=== PATIENT | female | born 1945 | race African-American/Black ===

== ENCOUNTER → 2020-03-02 | Outpatient (CLI) | payer OTHER ==
--- NOTE | 2020-03-02 15:00 | RAD ---
ANKLE LEFT 2V DATE: 03/02/2020 12:00 AM INDICATION: Reason: LEFT ANKLE PAIN. PT DENIES RECENT INJURY, FELL 20 YRS AGO PAIN LATERALLY / Spl. Instructions: / History: COMPARISON: None. FINDINGS: Bones: There is no evidence of acute fracture or dislocation. Well-corticated ossific density inferior to the medial malleolus may represent sequela of remote trauma. Joints: Mild degenerative changes of the ankle. No widening of the distal tibiofibular syndesmosis. Miscellaneous: None. IMPRESSION: No acute osseous abnormality. Mild degenerative changes. Electronically signed by: Reilly Montgomery MD (03/02/2020 2:57 PM) [facility]
== END ==
LOC: RAD 13:47
PROVIDERS: ATTEND Nurse Practitioner Family
DX: M19.072 Primary osteoarthritis, left ankle and foot (principal)
CPT/HCPCS: 73600

== ENCOUNTER → 2021-01-14 | Outpatient (CLI) | payer MEDICARE, OTHER ==
--- NOTE | 2021-01-14 16:51 | RAD ---
MR#: [id number] Date of Study: 01/14/2021 Ordering Physician: GRIS BEARD Referring Physician: MEENAKSHI MCKEE Tech: APPROVED REPORT Test Type: Exercise Stress Nurse/Tech: William Young RN Test Indications: Dizziness, Fatigue Cardiac History: HTN, See EMR. Medications: ASA 81mg, See EMR. Medical History: See EMR. Resting ECG: SR Resting Heart Rate: 60 bpm Resting Blood Pressure: 144/65mmHg Pretest Chest Pain: No chest pain Nurse/Tech Notes Lungs CTA, Heart tones regluar. Consent: The procedure was explained to the patient in lay terms. Informed consent was witnessed. Facundo eout was entered into [employer]. History and Stress Test performed by Shakira Mcgarry RT (R) (N) Stress Symptoms Dizziness and Fatigue POST EXERCISE Reason for Termination: Patient request Target HR: No Max HR: 112 bpm 91% of Maximum Predicted HR: 123 bpm Exercise duration: 3:11 min:sec, 1 Stage Exercise capacity: 3.6METs Max Blood Pressure: 178/77mmHg Blood Pressure response to exercise: Normal blood pressure response during stress. Heart Rate response to exercise: WNL Chest Pain: No. Arrhythmia: No. ST Change: No. INTERPRETATION Stress EKG Conclusion: Non-diagnostid due to low workload. Conclusion 1. Normal resting EKG. 2. Significantly decreased exercise capacity with less than 4 Mets achieved 3. Non-diagnostic EKG due to low work load but within these limitations no specific abnormalities not ed. 4. No symptoms reported. Recommendations Consider alternative testing such as chemical myocardial perfusion study if clinically indicated. Signed by : Maxim Prince, Electronically Approved : 01/14/2021 16:51:06
== END ==
LOC: NM 11:31
PROVIDERS: ATTEND Nurse Practitioner Family
DX: R42 Dizziness and giddiness (principal); I10 Essential (primary) hypertension; R53.83 Other fatigue
CPT/HCPCS: 93017

== ENCOUNTER → 2021-01-25 | Outpatient (CLI) | payer MEDICARE ==
--- NOTE | 2021-01-25 13:11 | KCIC ---
EXAM: DUAL ENERGY X-RAY ABSORPTIOMETRY (DEXA). HISTORY: Postmenopausal screening. FINDINGS: The lowest measured T-score is -0.2 in the left hip, based on a bone mineral density of 0.9 14 g/cm^2. Refer to the worksheets for full detail. No comparison examinations are available. IMPRESSION: 1. Normal. Bone mineral density yields a T-score of -1.0 or greater. Fracture risk is low. 2. FRAX report: Not calculated. METHODOLOGY: Dual energy x-ray absorptiometry was performed to measure bone mineral density. The foll owing analysis is based on the 2019 Official Positions of the International Society for Clinical Dens itometry: Measurements of the hips and the average of L1-L4 are preferred. When the spine and/or hip cannot be feasibly measured or interpreted, or in the setting of hyperparathyroidism, distal radial bone minera l density may be measured. The lumbar spine T-score is based on the average bone mineral density of L1-L4. In the setting of art ifact or anatomic abnormality, some lumbar levels may be excluded, and the remaining levels used for calculation. A single lumbar level is not used for diagnosis, and if only a single level is available for assessment, another anatomic site will be used to assign a diagnosis. The hip T-score is based on the bone mineral density measurement of the femoral neck or total proxima l femur of either side, whichever is lowest. Bilateral mean values are not used for diagnosis. The forearm T-score is derived from 33% of the distal radius of the nondominant forearm. Electronically signed by: Shakira Zamora MD (01/25/2021 1:08 PM) [id number]
== END ==
LOC: KCIC DEXA 12:26
PROVIDERS: ATTEND Nurse Practitioner Family
DX: N95.1 Menopausal and female climacteric states (principal); M81.0 Age-related osteoporosis without current pathological fracture
CPT/HCPCS: 77080